=== PATIENT | male | born 1965 | race Caucasian/White ===

== ENCOUNTER 2018-10-28 17:29 | Emergency (ER) | payer BC, MEDICAID ==
[~2018-10-28] VITALS: Ht 170.2 cm; Wt 75.7 kg
--- NOTE | 2018-10-28 17:33 | NUR ---
PT BIBA BLS TO BED 4 Addendum: 10/28/18 at 1735 by [facility]
[2018-10-28 17:35] VITALS: BP 174/75
--- NOTE | 2018-10-28 17:35 | NUR ---
PT BIB BY EMS. PT CALLED 911 FOR C/O CHEST DISCOMFORT. PATIENT REPORTS HX OF HTN BUT DOES NOT TAKE ANY MEDICATION. PATIENT REPORTS METHAMPHETAMINE USE. BED LOWERED WITH SIDE RAILS UP. WILL CONTINUE TO MONITOR
[2018-10-28] MEDS ORDERED: ASPIRIN 325 MG TAB PO ONE (18:15)
[2018-10-28 18:52] LABS: BASOPHILS # (AUTO) 0.1 K/uL (0.00-0.22); BASOPHILS % (AUTO) 0.9 % (0.0-2.0); EOSINOPHILS # (AUTO) 0.2 K/uL (0-0.4); EOSINOPHILS % (AUTO) 1.8 % (0.0-4.0); HEMATOCRIT 42.7 % (36-52); HEMOGLOBIN 14.4 g/dL (12.0-18.0); LYMPHOCYTES # (AUTO) 2.1 K/uL (2.0-11.5); LYMPHOCYTES % (AUTO) 17.9 % (20.5-51.1); MEAN CORPUSCULAR HEMOGLOBIN 30 pg (27-31); MEAN CORPUSCULAR HGB CONC 34 g/dL (33-37); MONOCYTES # (AUTO) 1.3 K/uL (0.8-1.0); MONOCYTES % (AUTO) 11.5 % (1.7-9.3); NEUTROPHILS # (AUTO) 7.9 K/uL (1.8-7.7); NEUTROPHILS % (AUTO) 67.9 % (42.2-75.2); PLATELET COUNT (AUTO) 304 K/uL (140-450); RED CELL DISTRIBUTION WIDTH 12.6 % (11.6-13.7); WHITE BLOOD COUNT (AUTO) 11.7 K/uL (4.8-10.8)
[2018-10-28 19:00] LABS: BARBITURATE, URINE NEG. ng/ml (NEG <=200); BENZODIAZEPINE, URINE NEG. ng/mL (NEG <=200); CANNABINOID, URINE NEG. ng/mL (NEG <=50); COCAINE, URINE NEG. ng/mL (NEG <=300); OPIATE, URINE NEG. ng/mL (NEG <=2000); PHENCYCLIDINE SCREEN,URINE POS. ng/mL (NEG <=25)
[2018-10-28 19:01] LABS: ALBUMIN 3.7 g/dL (3.4-5.0); ANION GAP 10.5 (8-16); ASPARTATE AMINOTRANSFERASE 404 U/L (15-37); CARBON DIOXIDE 29.6 mmol/L (21-32); CHLORIDE 94 mmol/L (98-107); CREATININE 0.9 mg/dL (0.7-1.3); GFR ARICAN-AMERICAN 114 mL/min (>90); GLUCOSE 106 mg/dL (74-106); MAGNESIUM 2.3 mg/dL (1.8-2.4); POTASSIUM 4.1 mmol/L (3.5-5.1); SODIUM SERUM 130 mmol/L (136-145); TOTAL BILIRUBIN 0.9 mg/dL (0.0-1.0); UREA NITROGEN, BLOOD 12 mg/dL (7-18)
[2018-10-28 19:05] LABS: PROTHROMBIN TIME 9.9 secs (10.8-13.4)
--- NOTE | 2018-10-28 19:14 | NUR ---
PT ENDORSED TO FAMILY CASEWORKER NURSE
--- NOTE | 2018-10-28 19:14 | NUR ---
ASSUMED CARE FROM [facility]
--- NOTE | 2018-10-28 19:15 | NUR ---
ATTEMPTED TO CALL FAMILY MEMBER, IDALMIS ([phone]), TO INFORM THEM OF PATIENT'S HOSPITALIZATION PER PT REQUEST BUT NO RESPONSE
[2018-10-28 19:18] LABS: APPEARANCE,URINE CLEAR (CLEAR); BILIRUBIN,URINE NEGATIVE (NEGATIVE); BLOOD, URINE TRACE-I (NEGATIVE); COLOR,URINE YELLOW (YELLOW); LEUKOCYTE ESTERASE ,URINE NEGATIVE (NEGATIVE); NITRITE, URINE NEGATIVE (NEGATIVE); UGLUCOSE NEGATIVE (NEGATIVE)
--- NOTE | 2018-10-28 19:30 | NUR ---
PT SLEEPING AT THIS TIME. VSS. NO NEW COMPLAINTS OR CONCERNS.
[2018-10-28 19:40] LABS: RBC,URINE 0-5 (RARE) /HPF (0-5); WBC,URINE NONE SEEN /HPF (0-5)
--- NOTE | 2018-10-28 22:19 | NUR ---
PT SLEEPING AT THIS TIME. NO S/S OF DISTRESS. WILL CONTINUE TO MONITOR.
--- NOTE | 2018-10-28 23:21 | NUR ---
Patient discharged with v/s stable. Written and verbal after care instructions given and explained. Patient verbalized understanding. Ambulatory with steady gait. All questions addressed prior to discharge. Advised to follow up with PMD.
[2018-10-28 23:22] VITALS: BP 142/68
== END 2018-10-28 23:22 | disposition home or self-care (01) ==
LOC: MED 17:29 → EDSEX 17:29 → MED 23:22
DX: F15.10 Other stimulant abuse, uncomplicated (principal); R07.9 Chest pain, unspecified; I10 Essential (primary) hypertension; Z88.5 Allergy status to narcotic agent
CPT/HCPCS: 36415; 71045; 80053; 80305; 81001; 83735; 84484; 85025; 85610; 85730; 93005; 99284; G0482

== ENCOUNTER 2023-07-16 09:18 | Emergency (ER) | payer BC, MEDICAID ==
[~2023-07-16] VITALS: Ht 167.6 cm; Wt 70.3 kg
[2023-07-16 09:27] VITALS: BP 130/77; PULSE 85; RESP 18; TEMP 96.3
[2023-07-16] MEDS ORDERED: KETOROLAC 60 MG/2 ML VIAL IM ONE (11:40)
[2023-07-16] MEDS ORDERED: IBUP-2213 PO (11:47)
[2023-07-16] MEDS ORDERED: ACET-8905 PO (11:47)
== END 2023-07-16 12:45 | disposition home or self-care (01) ==
LOC: MED 09:18
DX: S42.401A Unspecified fracture of lower end of right humerus, initial encounter for closed fracture (principal); I10 Essential (primary) hypertension; Z88.5 Allergy status to narcotic agent; X58.XXXA Exposure to other specified factors, initial encounter; Y92.89 Other specified places as the place of occurrence of the external cause; Y93.89 Activity, other specified; Y99.8 Other external cause status
CPT/HCPCS: 96372; 99283; J1885; 29105